=== PATIENT | female | born 1975 | race Caucasian/White ===

== ENCOUNTER 2025-04-05 04:15 | Emergency (ER) | payer BC, MEDICAID ==
[2025-04-05] MEDS: Acetaminophen/HYDROcodone 325-5 MG Tab PO ONE (04:39)
[2025-04-05] MEDS ORDERED: Sodium Chloride 0.9% 10 ML Syringe FLUSH PRN (05:07)
[2025-04-05] MEDS: Lactated Ringers 1,000 ML IV ONE (05:34)
[2025-04-05] MEDS: Ondansetron 4 MG/2 ML SDV IVPUSH ONE (06:00)
[2025-04-05 06:07] LABS: PLATELET COUNT,PLT 38 x10^3/uL (130-400); RED BLOOD CELL COUNT 2.24 x10^6/uL (4.00-5.50); WHITE BLOOD CELL COUNT,WBC 4.9 x10^3/uL (4.0-10.0)
[2025-04-05 06:08] LABS: A/G RATIO 0.54; ALANINE AMINOTRANSFERASE,ALT 56 U/L (14-59); ASPARTATE AMNIOTRANSFERASE,AST 106 U/L (15-37); BILIRUBIN TOTAL 0.7 mg/dL (0.2-1.0); BLOOD UREA NITROGEN,BUN 47 mg/dL (7-18); CARBON DIOXIDE,CO2 17 mmol/L (21-32); CHLORIDE,CL 90 mmol/L (98-107); GLUCOSE RANDOM 107 mg/dL (70-99); POTASSIUM,K 3.1 mmol/L (3.5-5.1); PROTEIN TOTAL,TP 6.0 g/dL (6.4-8.2)
[2025-04-05 06:15] LABS: EST CRCL DRUG DOSING (CG) 11.99 mL/min
[2025-04-05 06:16] LABS: ESTIMATED GFR 11 mL/min (>=60); ETHANOL BLOOD MEDICAL < 3 mg/dL (0-3)
[2025-04-05 06:17] LABS: CREATININE 4.6 mg/dL (0.55-1.02); SODIUM,NA 128 mmol/L (136-145)
[2025-04-05 06:18] LABS: CREATINE KINASE,CK 288 U/L (26-192)
[2025-04-05 06:35] LABS: LYMPHOCYTES % ATYPICAL MANUAL 2 % (0); LYMPHOCYTES ABSOLUTE MAN 3.6 x10^3/uL (1.0-4.8); LYMPHOCYTES PERCENT MAN 65 % (25-50); MONOCYTES ABSOLUTE MAN 1.2 x10^3/uL (0.0-0.8); MONOCYTES PERCENT MAN 24 % (2-11); NEUTROPHILS ABSOLUTE MAN 0.1 x10^3/uL (1.8-7.7); PLATELET CLUMPS NOT SEEN; PLATELET COUNT ESTIMATE MARKED DEC; SEG NEUTROPHILS PERCENT MAN 2 % (50-80)
[2025-04-05 07:11] LABS: APPEARANCE,URINE CLOUDY (CLEAR); GLUCOSE,URINE NEGATIVE (NEGATIVE); OCCULT BLOOD,URINE TRACE-LYSED (NEGATIVE)
[2025-04-05 07:16] LABS: AMPHETAMINES SCREEN, URINE POSITIVE (NEGATIVE); BUPRENORPHINE SCREEN,URINE NEGATIVE (NEGATIVE); COCAINE METABOLITES,URINE NEGATIVE (NEGATIVE); METHAMPHETAMINE SCREEN, URINE POSITIVE (NEGATIVE)
[2025-04-05 07:17] LABS: METHADONE SCREEN, URINE NEGATIVE (NEGATIVE); OXYCODONE SCREEN,URINE NEGATIVE (NEGATIVE); PCP SCREEN,URINE NEGATIVE (NEGATIVE); THC SCREEN,URINE 50 NG/ML NEGATIVE (NEGATIVE)
[2025-04-05] MEDS: LORazepam 2 MG/ML SDV IVPUSH ONE (07:24)
[2025-04-05 07:25] LABS: SQUAMOUS EPITHELIAL CELLS,UR FEW /HPF (NOT SEEN)
== END 2025-04-05 09:30 | disposition short-term general hospital (02) ==
LOC: VM.ED 04:15
DX: S63.502A Unspecified sprain of left wrist, initial encounter (principal); S12.291A Other nondisplaced fracture of third cervical vertebra, initial encounter for closed fracture; N17.9 Acute kidney failure, unspecified; E87.1 Hypo-osmolality and hyponatremia; E87.20 Acidosis, unspecified; S12.301A Unspecified nondisplaced fracture of fourth cervical vertebra, initial encounter for closed fracture; W19.XXXA Unspecified fall, initial encounter
CPT/HCPCS: 36415; 51702; 70450; 71045; 72125; 73110-LT; 80053; 80305-QW; 80307; 81001; 82550; 83605; 84484; 85025; 87040; 87077; 87186; 96361; 96365; 96366; 96375; 99284; 99285-25; A9270-GY; J0456; J0696; J2060; J2270; J2405; J3480; J7030; J7050; J7120